=== PATIENT | female | born 1980 | race African-American/Black ===

== ENCOUNTER → 2021-05-15 | Outpatient (CLI) | payer BC ==
[~2021-05-15] MED LIST: IOHEXOL 300 MG/ML 50 ML VIAL. IJ ONE
[2021-05-15 13:52] LABS: PREG TEST PT QUAL NEGATIVE (NEG)
--- NOTE | 2021-05-15 17:29 | RAD ---
HYSTEROSALPINGOGRAM 05/15/2021. INDICATION: Infertility. COMPARISON: None available. PROCEDURE AND FINDINGS: The procedure was explained in detail to the patient, and all of her questions and concerns were addr essed. Following the use of aseptic technique, contrast material was injected into the endocervical canal in a retrograde fashion. The intrauterine cavity appears normal in size, shape, and position. There is a curvilinear filling defect along the right uterine body extending to the fundus. Consideration may be given for synechiae. Contrast material is seen filling both oviducts to the fimbriated ends, and there is free spillage of contrast into the peritoneal cavity bilaterally. Fluoroscopy time: 0.1 minutes Number of images: 6 IMPRESSION: 1. Patent fallopian tubes. 2. 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 Electronically signed by: Darlene Lara MD (05/15/2021 5:26 PM) [id number]
== END | disposition home or self-care (01) ==
LOC: RAD 13:06
PROVIDERS: ATTEND Obstetrics & Gynecology
DX: B37.3 Candidiasis of vulva and vagina (principal); N93.8 Other specified abnormal uterine and vaginal bleeding; Z88.0 Allergy status to penicillin
CPT/HCPCS: 58340; 74740; 84703; Q9967